=== PATIENT | female | born 1995 | race African-American/Black ===

== ENCOUNTER 2022-09-22 23:04 | Emergency (ER) | payer OTHER ==
[~2022-09-22] VITALS: Ht 160 cm; Wt 99.8 kg
[2022-09-23] MEDS ORDERED: HYDR-3980 PO (00:19)
[2022-09-23] MEDS ORDERED: HYDROCODONE/APAP 5/325MG TABLET ONE (00:23)
[2022-09-23] MEDS ORDERED: HYDROCODONE/APAP 5/325MG TABLET PO ONE (00:30)
[2022-09-23] MEDS ORDERED: HYDR-4275 PO (00:31)
[2022-09-23 00:43] VITALS: BP 130/90; TEMP 98.2; O2SAT 97
== END 2022-09-23 00:46 | disposition home or self-care (01) ==
LOC: ER 23:11
DX: S62.612A Displaced fracture of proximal phalanx of right middle finger, initial encounter for closed fracture (principal); S62.614A Displaced fracture of proximal phalanx of right ring finger, initial encounter for closed fracture; W18.30XA Fall on same level, unspecified, initial encounter; Y93.89 Activity, other specified; Y92.89 Other specified places as the place of occurrence of the external cause; Y99.8 Other external cause status
CPT/HCPCS: 73130-TC

== ENCOUNTER 2023-01-26 17:16 | Emergency (ER) | payer OTHER ==
[~2023-01-26] VITALS: Ht 160 cm; Wt 99.8 kg
[~2023-01-26 17:16] MED LIST: HYDR-4275 PO
[2023-01-26 17:42] VITALS: BP 140/77; TEMP 97.7
[2023-01-26] MEDS: IBUPROFEN 600 MG TABLET PO ONE (19:00)
[2023-01-26] MEDS ORDERED: IBUPROFEN 600 MG TABLET ONE (19:03)
[2023-01-26] MEDS ORDERED: IBUP-1955 PO (19:28)
[2023-01-26 20:26] VITALS: O2SAT 100
== END 2023-01-26 20:27 | disposition home or self-care (01) ==
LOC: ER 17:20
DX: M25.532 Pain in left wrist (principal); M79.632 Pain in left forearm
CPT/HCPCS: 73090-TC; 73110; 73130-TC

== ENCOUNTER 2023-08-18 18:25 | Emergency (ER) | payer OTHER ==
[~2023-08-18] VITALS: Ht 162.6 cm; Wt 93.0 kg
[~2023-08-18 18:25] MED LIST changes: +IBUP-1955 PO
[2023-08-18 19:04] VITALS: BP 124/88; TEMP 98.2
[2023-08-18] MEDS ORDERED: PSEU120T83 PO (19:50)
[2023-08-18] MEDS ORDERED: FLUT16SP16 BNOSTRILS (19:50)
[2023-08-18] MEDS ORDERED: PRED50TA PO (19:50)
[2023-08-18] MEDS ORDERED: BENZ-13 PO (19:50)
[2023-08-18 19:53] VITALS: O2SAT 97
== END 2023-08-18 20:01 | disposition home or self-care (01) ==
LOC: ER 18:34
DX: H69.81 Other specified disorders of Eustachian tube, right ear (principal); J32.9 Chronic sinusitis, unspecified; Z79.899 Other long term (current) drug therapy
CPT/HCPCS: J7030